=== PATIENT | male | born 1975 | race Caucasian/White ===

== ENCOUNTER 2020-04-30 06:23 | Day surgery (SDC) | payer BC ==
[2020-04-23 15:51] LABS: BASOPHILS % (AUTO) 0.8 % (0-1); EOSINOPHILS # (AUTO) 0.1 X10'3 (0-0.9); EOSINOPHILS % (AUTO) 1.7 % (0-6); LYMPHOCYTES # (AUTO) 1.1 X10'3 (1.1-4.8); LYMPHOCYTES % (AUTO) 22.8 % (21-51); MEAN CORPUSCULAR HEMOGLOBIN 28.4 PG (27.0-31.0); MEAN CORPUSCULAR HGB CONC 32.7 g/dL (33.0-36.5); MEAN CORPUSCULAR VOLUME 86.7 FL (78-98); MEAN PLATELET VOLUME 9.3 FL (7.4-10.4); MONOCYTES # (AUTO) 0.4 X10'3 (0-0.9); NEUTROPHILS # (AUTO) 3.1 X10'3 (1.8-7.7); NEUTROPHILS % (AUTO) 65.7 % (42-75); PRE OP HEMATOCRIT 44.5 % (42.0-52.0); PRE OP HEMOGLOBIN 14.6 g/dL (14.0-17.9); PRE OP PLATELET COUNT 233 X10'3 (140-440); RED BLOOD COUNT 5.13 X10'6 (4.70-6.10); RED CELL DISTRIBUTION WIDTH 14.9 % (11.5-14.5)
[2020-04-23 15:59] LABS: PRE OP INR 1.1 INR; PRE OP PROTIME 11.1 SECONDS (9.0-12.0)
[2020-04-23 16:04] LABS: ALBUMIN 4.1 G/DL (3.4-5.0); ALBUMIN/GLOBULIN RATIO 1.3 (1.1-1.5); ALKALINE PHOSPHATASE 73 IU/L (46-116); BLOOD UREA NITROGEN 11 MG/DL (7-18); BUN/CREATININE RATIO 10.4 (5.4-32.0); CALCIUM 9.2 MG/DL (8.5-10.1); CHLORIDE 106 MMOL/L (99-107); CREATININE 1.06 MG/DL (0.60-1.10); PRE OP ALT 36 U/L (30-65); PRE OP ANION GAP 12 (8-16); PRE OP AST 20 U/L (10-37); PRE OP BILIRUB, TOTAL 0.4 MG/DL (0.0-1.0); PRE OP GLUCOSE 108 MG/DL (70-104); PRE OP POTASSIUM 3.9 MMOL/L (3.4-5.1); PRE OP SODIUM 143 MMOL/L (135-145); TOTAL CARBON DIOXIDE 24.8 MMOL/L (24-32); TOTAL PROTEIN 7.3 G/DL (6.4-8.2); eGFR 76 ML/MIN
[2020-04-30] VITALS (10 sets, daily range): BP systolic 124–163; BP diastolic 74–90
[~2020-04-30] VITALS: Ht 172.7 cm; Wt 86.2 kg
[~2020-04-30 06:23] MED LIST: ADV50100 INH; OMNICEF PO; albuterol 2.5 MG/3 ML nebule NEB ONE; famotidine 20mg tablet PO ONE; ringers solution, lacted 1,000 ML IV SCH
[2020-04-30] MEDS ORDERED: cocaine 4% topical solution 4ml bottle ONE (07:11)
[2020-04-30] MEDS ORDERED: methylPREDNISolone acetate 80mg/ml inj**IM only ONE (07:11)
[2020-04-30] MEDS ORDERED: LIDOcaine 1% W/epiNEPHrine 1:100,000 20ml vial ONE ×2 (07:11→07:22)
[2020-04-30] MEDS ORDERED: mupirocin 2% ointment 22GM ONE (07:12)
[2020-04-30] MEDS ORDERED: cefTAZidime 1gm inj ONE (07:12)
[2020-04-30] MEDS ORDERED: oxymetazoline 15 ML nasal spray NS ONE (07:12)
[2020-04-30] MEDS: oxymetazoline 15 ML nasal spray NS PRN ×2 (07:14→08:59)
[2020-04-30] MEDS ORDERED: ringers solution, lacted 1,000 ML IV SCH (08:05)
[2020-04-30] MEDS ORDERED: morphine 4 MG/ML inj SYRINge IV PRN (08:05)
[2020-04-30] MEDS ORDERED: ondansetron/PF 4mg/2ml inj IV PRN (08:05)
[2020-04-30] MEDS ORDERED: meperidine/PF 25mg/ml syringe IV PRN ×3 (08:05)
[2020-04-30] MEDS ORDERED: morphine 2 MG/ML inj. syringe IV PRN (08:05)
[2020-04-30] MEDS ORDERED: proCHLORperazine 10 MG/2 ml inj IV PRN (08:05)
[2020-04-30] MEDS ORDERED: midazolam 2 mg/2 ml injection ONE (08:09)
[2020-04-30] MEDS ORDERED: fentaNYL /PF 50mcg/ml 5ml ampule ONE (08:09)
[2020-04-30] MEDS ORDERED: LIDOcaine 2% (20mg/ml) 5ml vial ONE (08:09)
[2020-04-30] MEDS ORDERED: propofol inj 20 ML IV ONE (08:09)
[2020-04-30] MEDS ORDERED: dexamethasone sod phosphate 4mg/ml inj. ONE (08:10)
[2020-04-30] MEDS ORDERED: ondansetron/PF 4mg/2ml inj ONE (08:29)
[2020-04-30] MEDS ORDERED: meperidine/PF 25mg/ml syringe ONE (10:11)
--- NOTE | 2020-04-30 10:45 | NUR ---
Received from OR via BED , accompanied by Anesthesiologist DR OCHOA and report given by Anesthesiolgist. PATIENT WAKING UP, DENIES PAIN, V/S WNL, CSM INTACT, 20G PIV TO RUE, COTTONOID PACKING TO BILATERALLY SINUSES WITH NO ACTIVE DRAINAGE VISABLE AT THIS TIME
[2020-04-30] MEDS ORDERED: salt irrigation nasal spray 45 ML SPRAY NS PRN (11:15)
--- NOTE | 2020-04-30 12:05 | NUR ---
PATIENT A&OX4, DENIES PAIN, V/S WNL, CSM INTACT, 20G PIV TO RUE D/C, COTTONOID PACKING TO BILATERALLY SINUSES REMOVED ORDERED 30MIN POST OP WITH NO ACTIVE DRAINAGE VISABLE AT THIS TIME. . I HAVE REVIEWED D/C INSTRUCTIONS WITH PATIENT AND FAMILY AND THEY HAVE VERBALIZED UNDERSTANDING. PATIENT D/C HOME WITH FAMILY TO TRANSPORT AND ALL BELONGINGS..
== END 2020-04-30 12:05 | disposition home or self-care (01) ==
LOC: PAS 06:23
PROVIDERS: ATTEND Otolaryngology
DX: J34.2 Deviated nasal septum (principal); J34.3 Hypertrophy of nasal turbinates; J32.8 Other chronic sinusitis; J33.8 Other polyp of sinus; Z98.890 Other specified postprocedural states; J45.909 Unspecified asthma, uncomplicated; Z88.0 Allergy status to penicillin; Z72.89 Other problems related to lifestyle; Z79.899 Other long term (current) drug therapy; Z79.01 Long term (current) use of anticoagulants; Z20.828 Contact with and (suspected) exposure to other viral communicable diseases
CPT/HCPCS: 30140; 30520; 31253; 31259; 31267; 36415; 61782; 80053; 82948; 85025; 85576; 85610; 85730; 87635; 93005; A6402; C1726; C9250; C9803; J0713; J1040; J1100; J2001; J2175; J2250; J2405; J2704; J3010; J7040; J7120; A4618; A7000